=== PATIENT | male | born 1995 | race Hispanic/Latino ===

== ENCOUNTER 2016-09-14 15:04 | Emergency (ER) | payer OTHER ==
[2016-09-14] MEDS ORDERED: Cyclobenzaprine 10 MG TAB ONE (15:34)
[2016-09-14] MEDS ORDERED: Acetaminophen/Codeine 30-300mg Tablet ONE (15:34)
== END 2016-09-14 15:45 | disposition home or self-care (01) ==
LOC: MADERS 15:04
DX: S16.1XXA Strain of muscle, fascia and tendon at neck level, initial encounter (principal); X50.0XXA Overexertion from strenuous movement or load, initial encounter
CPT/HCPCS: 99283

== ENCOUNTER 2017-03-03 15:04 | Emergency (ER) | payer OTHER ==
[2017-03-03] MEDS ORDERED: Ketorolac Tromethamine 60 MG/2 ML VIAL ONE (15:36)
[2017-03-03] MEDS ORDERED: traMADol HCl 50 MG TAB ONE (15:36)
--- NOTE | 2017-03-03 16:23 | RAD ---
3 VIEWS LEFT HAND: Date: 03/03/17 HISTORY: Left hand injury. FINDINGS: This exam was initially marked as right but is actually the LEFT hand. This will be dictated a s views of the left hand. FINDINGS/IMPRESSION: There is no evidence of a fracture, dislocation, or other osseous abnormality involving the left nelson d. If symptoms persist, follow-up imaging is advised. POS: [facility]
--- NOTE | 2017-03-03 16:24 | RAD ---
3 VIEWS LEFT WRIST: Date: 03/03/17 HISTORY: Left wrist injury. FINDINGS: This exam was initially marked as a right wrist but is actually views of the LEFT wrist. There is no evidence of a fracture, dislocation, or other osseous abnormality involving the left wri st. There is subcutaneous soft tissue swelling at the dorsal aspect of the left wrist. IMPRESSION: Subcutaneous soft tissue swelling without evidence of a fracture involving the left wrist. If patien t's symptoms persist, follow-up imaging is advised. POS: [facility]
--- NOTE | 2017-03-03 16:50 | RAD ---
LEFT FOREARM TWO VIEWS: 03/03/17 HISTORY: Left arm injury. FINDINGS: Mild ulnar negative variance is noted. No acute fracture or dislocation are apparent. IMPRESSION: No acute osseous abnormalities are demonstrated. POS: [facility]
--- NOTE | 2017-03-03 16:51 | RAD ---
RIGHT WRIST THREE VIEWS 03/03/17 HISTORY: Right wrist injury. FINDINGS: Scaphoid waist is intact. No acute fracture or dislocation are apparent. IMPRESSION: No acute osseous abnormalities are demonstrated. POS: [facility]
--- NOTE | 2017-03-03 18:09 | RAD ---
RIGHT HAND THREE VIEWS: 03/03/17 HISTORY: Right hand injury. FINDINGS: Joint spaces are preserved. No acute fracture, dislocation, or metallic foreign bodies are apparent. IMPRESSION: No acute osseous abnormalities are demonstrated. POS: [facility]
== END 2017-03-03 17:05 | disposition home or self-care (01) ==
LOC: MADERS 15:04
DX: S63.502A Unspecified sprain of left wrist, initial encounter (principal); S50.12XA Contusion of left forearm, initial encounter; S60.221A Contusion of right hand, initial encounter; F17.210 Nicotine dependence, cigarettes, uncomplicated; W23.0XXA Caught, crushed, jammed, or pinched between moving objects, initial encounter; Y92.69 Other specified industrial and construction area as the place of occurrence of the external cause; Y99.0 Civilian activity done for income or pay
CPT/HCPCS: 96372; J1885

== ENCOUNTER 2020-04-20 02:25 | Emergency (ER) | payer OTHER, SELFPAY ==
[2020-04-20] MEDS ORDERED: Lidocaine 2% 20 ml MDV ONE (02:48)
[2020-04-20] MEDS ORDERED: Ibuprofen 600 MG TAB ONE (03:12)
== END 2020-04-20 03:22 | disposition home or self-care (01) ==
LOC: MADERS 02:25
DX: T16.1XXA Foreign body in right ear, initial encounter (principal); F17.200 Nicotine dependence, unspecified, uncomplicated
CPT/HCPCS: 99282

== ENCOUNTER 2022-07-01 18:39 | Emergency (ER) | payer SELFPAY ==
[~2022-07-01 18:39] MED LIST: Iopamidol 370 76% 100 ML VIAL ONE; Sodium Chloride 0.9% 1,000 ML BAG ONE
[2022-07-01] MEDS ORDERED: Morphine 4 MG/ML VIAL ONE (18:55)
[2022-07-01] MEDS ORDERED: Ondansetron PF 4 MG/2 ML Vial ONE (18:56)
[2022-07-01 19:22] LABS: #Basophils 0.1 thou/uL (0.0-0.2); #Eosinphils 0.8 thou/uL (0.0-0.7); #Lymphocytes 2.8 thou/uL (1.20-3.40); #Monocytes 0.5 thou/uL (0.11-0.59); #Neutrophils 4.8 thou/uL (1.40-6.50); %Basophils 0.8 % (0.0-1.0); %Eosinophils 9.1 % (0.0-10.0); %Lymphocytes 31.1 % (21.0-51.0); %Monocytes 5.3 % (0.0-10.0); %Neutrophils 53.6 % (42.0-75.0); Hemoglobin 15.9 g/dL (14.0-18.0); Mean Corpuscular HGB CONC 33.6 g/dL (32.0-36.0); Mean Corpuscular Hemoglobin 28.5 pg (27.0-31.0); Mean Corpuscular Volume 84.8 fl (78.0-98.0); Platelet Count 339 10x3/uL (130-400); RBC Distribution Width 11.6 % (11.5-14.5); Red Blood Cell (RBC) Count 5.58 mill/uL (4.70-6.10); White Blood Cell (WBC) Count 8.9 10x3/uL (4.8-10.8)
[2022-07-01 19:36] LABS: ALT (SGPT) 412 U/L (8-55); AST (SGOT) 296 U/L (5-34); Albumin 4.2 g/dL (3.5-5.0); Alkaline Phosphatase 88 U/L (40-110); Anion Gap 13 mmol/L (10-20); BUN (Urea Nitrogen) 9 mg/dL (8.9-20.6); Bilirubin, Total 1.4 mg/dL (0.2-1.2); Calc. Creatinine Clearance 0 mL/min (70-130); Calcium 9.1 mg/dL (7.8-10.44); Carbon Dioxide 26 mmol/L (22-29); Chloride 106 mmol/L (98-107); Estimated GFR 121; Glucose 127 mg/dL (70-105); Lipase 91 U/L (8-78); Potassium 3.5 mmol/L (3.5-5.1); Protein, Total 7.2 g/dL (6.0-8.3); Sodium 141 mmol/L (136-145)
[2022-07-01 20:15] LABS: Bilirubin Small (Negative); Blood, Urine Negative (Negative); Clarity Clear (Clear); Glucose, Urine (Dipstick) Negative (Negative); Ketone, Urine Negative (Negative); Leukocyte Negative (Negative); Nitrite Negative (Negative); Protein, Urine (Dipstick) Negative (Neg-Trace); Specific Gravity, Urine 1.025 (1.005-1.030); pH, Urine 6.5 (5.0-9.0)
== END 2022-07-01 22:48 | disposition home or self-care (01) ==
LOC: MADERS 18:39
DX: R10.816 Epigastric abdominal tenderness (principal); K85.90 Acute pancreatitis without necrosis or infection, unspecified; R79.89 Other specified abnormal findings of blood chemistry; F17.210 Nicotine dependence, cigarettes, uncomplicated
CPT/HCPCS: 74177; 80053; 81003; 83690; 85025; 96361; 96374; 96375; J2270; J2405; J7050; Q9967

== ENCOUNTER 2022-07-03 14:38 | Emergency (ER) | payer SELFPAY ==
[~2022-07-03 14:38] MED LIST changes: -Sodium Chloride 0.9% 1,000 ML BAG ONE
[2022-07-03] MEDS ORDERED: Sodium Chloride 0.9% 1,000 ML ONE (14:58)
[2022-07-03] MEDS ORDERED: Ondansetron PF 4 MG/2 ML Vial ONE (14:58)
[2022-07-03] MEDS ORDERED: HYDROmorphone 0.5 MG/0.5 ML SYRINGE ONE (14:58)
[2022-07-03 15:11] LABS: #Basophils 0.1 thou/uL (0.0-0.2); #Eosinphils 0.6 thou/uL (0.0-0.7); #Lymphocytes 3.7 thou/uL (1.20-3.40); #Monocytes 0.5 thou/uL (0.11-0.59); #Neutrophils 5.6 thou/uL (1.40-6.50); %Basophils 0.8 % (0.0-1.0); %Eosinophils 5.3 % (0.0-10.0); %Monocytes 5.1 % (0.0-10.0); %Neutrophils 53.7 % (42.0-75.0); Mean Corpuscular HGB CONC 33.7 g/dL (32.0-36.0); Mean Corpuscular Hemoglobin 28.5 pg (27.0-31.0); Mean Corpuscular Volume 84.4 fl (78.0-98.0); Mean Platelet Volume 6.5 fL (7.4-10.4); Platelet Count 390 10x3/uL (130-400); RBC Distribution Width 11.8 % (11.5-14.5); Red Blood Cell (RBC) Count 5.64 mill/uL (4.70-6.10); White Blood Cell (WBC) Count 10.5 10x3/uL (4.8-10.8)
[2022-07-03 15:26] LABS: ALT (SGPT) 325 U/L (8-55); AST (SGOT) 201 U/L (5-34); Albumin 4.1 g/dL (3.5-5.0); Alkaline Phosphatase 103 U/L (40-110); Anion Gap 13 mmol/L (10-20); BUN (Urea Nitrogen) 8 mg/dL (8.9-20.6); Bilirubin, Total 0.7 mg/dL (0.2-1.2); Calc. Creatinine Clearance 0 mL/min (70-130); Calcium 9.2 mg/dL (7.8-10.44); Carbon Dioxide 25 mmol/L (22-29); Chloride 104 mmol/L (98-107); Estimated GFR 121; Globulin 2.9 g/dL (2.4-3.5); Glucose 123 mg/dL (70-105); Lipase 101 U/L (8-78); Potassium 3.7 mmol/L (3.5-5.1); Sodium 138 mmol/L (136-145)
[2022-07-03 20:39] LABS: Bilirubin Small (Negative); Blood, Urine Negative (Negative); Clarity Clear (Clear); Glucose, Urine (Dipstick) Negative (Negative); Ketone, Urine Negative (Negative); Leukocyte Negative (Negative); Nitrite Negative (Negative); Protein, Urine (Dipstick) Negative (Neg-Trace); Specific Gravity, Urine 1.015 (1.005-1.030); pH, Urine 8.5 (5.0-9.0)
[2022-07-04] MEDS ORDERED: Metoclopramide HCl 10 MG/2 ML VIAL ONE (02:04)
[2022-07-04] MEDS ORDERED: Ketorolac Tromethamine 30 MG/ML VIAL ONE ×2 (02:46→12:54)
[2022-07-04] MEDS ORDERED: Ondansetron PF 4 MG/2 ML Vial ONE ×3 (03:33→03:34)
[2022-07-04] MEDS ORDERED: Sodium Chloride 0.9% 1,000 ML ONE (03:33)
[2022-07-04 07:21] LABS: #Basophils 0.1 thou/uL (0.0-0.2); #Eosinphils 0.1 thou/uL (0.0-0.7); #Lymphocytes 1.9 thou/uL (1.20-3.40); #Monocytes 0.4 thou/uL (0.11-0.59); #Neutrophils 7.1 thou/uL (1.40-6.50); %Eosinophils 0.7 % (0.0-10.0); %Lymphocytes 19.8 % (21.0-51.0); %Monocytes 4.3 % (0.0-10.0); %Neutrophils 74.1 % (42.0-75.0); Hemoglobin 15.2 g/dL (14.0-18.0); Mean Corpuscular HGB CONC 33.7 g/dL (32.0-36.0); Mean Corpuscular Hemoglobin 28.8 pg (27.0-31.0); Mean Corpuscular Volume 85.6 fl (78.0-98.0); Mean Platelet Volume 6.9 fL (7.4-10.4); Platelet Count 340 10x3/uL (130-400); RBC Distribution Width 11.8 % (11.5-14.5); Red Blood Cell (RBC) Count 5.28 mill/uL (4.70-6.10); White Blood Cell (WBC) Count 9.5 10x3/uL (4.8-10.8)
[2022-07-04 07:37] LABS: Anion Gap 9 mmol/L (10-20)
[2022-07-04 07:48] LABS: BUN (Urea Nitrogen) 7 mg/dL (8.9-20.6); Calc. Creatinine Clearance 0 mL/min (70-130); Carbon Dioxide 28 mmol/L (22-29); Chloride 107 mmol/L (98-107); Potassium 4.3 mmol/L (3.5-5.1); Sodium 140 mmol/L (136-145)
[2022-07-04 07:49] LABS: AST (SGOT) 313 U/L (5-34); Albumin 3.7 g/dL (3.5-5.0); Alkaline Phosphatase 104 U/L (40-110); Bilirubin, Total 1.3 mg/dL (0.2-1.2); Calcium 8.5 mg/dL (7.6-10.4); Estimated GFR 119; Globulin 2.5 g/dL (2.4-3.5); Glucose 113 mg/dL (70-105); Protein, Total 6.2 g/dL (6.0-8.3)
[2022-07-04 07:50] LABS: ALT (SGPT) 540 U/L (8-55)
[2022-07-04 12:07] LABS: HBSAg Index 0.25 S/CO (0-0.99); Hep A IgM AB Non-Reactive (NonReactive); Hep A IgM S/CO 0.34 S/CO (0-0.79); Hep B Surf Ag Non-Reactive S/CO (NonReactive); Hep C IgG Ab Non-Reactive (NonReactive); Hep C Index 0.06 S/CO (0-0.79); Hepatitis B Core IgM Abs Non-Reactive (NonReactive)
[2022-07-04] MEDS ORDERED: Acetaminophen 500 MG TAB ONE (14:55)
[2022-07-04 15:19] LABS: Amphetamine Detected (NotDetected); Cocaine Metabolite Screen Not Detected (NotDetected); Methamphetamine Detected (NotDetected); Opiate Screen Detected (NotDetected); Phencyclidine (PCP) Not Detected (NotDetected); THC/Cannabinoid Screen Not Detected (NotDetected)
[2022-07-04 15:20] LABS: Barbiturates Screen Not Detected (NotDetected); Benzodiazepine Screen Not Detected (NotDetected); Medtox Control Line Valid? VALID (VALID); Methadone Not Detected (NotDetected); Oxycodone Screen Not Detected (NotDetected); Tricyclic Screen Not Detected (NotDetected)
[2022-07-04 18:36] LABS: Acetaminophen Less than 10.0 mcg/mL (10.0-30.0); Alcohol Less than 10 mg/dL (Less than 10); Salicylate Less than 8.0 mg/dL (15.0-30.0)
[2022-07-04] MEDS ORDERED: Haloperidol Lactate 5 MG/ML VIAL ONE (19:17)
== END 2022-07-04 21:28 | disposition short-term general hospital (02) ==
LOC: MADERS 14:38
DX: R10.13 Epigastric pain (principal); R94.5 Abnormal results of liver function studies; F17.210 Nicotine dependence, cigarettes, uncomplicated
CPT/HCPCS: 74177; 80053; 80074; 80306; 80307; 81003; 83690; 85025; 96361; 96372; 96374; 96375; 96376; J1170; J1630; J1885; J2405; J2765; J7050; Q9967